=== PATIENT | male | born 1965 | race African-American/Black ===

== ENCOUNTER 2016-09-11 06:43 | Day surgery (SDC) | payer OTHER ==
[~2016-09-11] VITALS: Ht 198.1 cm; Wt 136.1 kg
[~2016-09-11 06:43] MED LIST: AMLODIPINE BESY10 MG PO; APRESOLIN50 MG PO; DIALYVITE TABL1 EACH PO; FISH OIL 1,2001 EAC4 PO; LASIX40 MG PO; NORVASC10 M1 PO; RENVELA800 MG PO; SENSIPAR60 MG PO
[2016-09-11 09:00] LABS: METH RESISTANT S AUREUS PCR NEGATIVE (NEGATIVE)
[2016-09-11 09:32] LABS: PROBE CHECK PASS; SPECIMEN PROCESSING CONTROL PASS
== END 2016-09-11 08:45 | disposition home or self-care (01) ==
LOC: CATH 06:43
PROVIDERS: Surgery
DX: T82.858A Stenosis of other vascular prosthetic devices, implants and grafts, initial encounter (principal); Y83.2 Surgical operation with anastomosis, bypass or graft as the cause of abnormal reaction of the patient, or of later complication, without mention of misadventure at the time of the procedure; Z99.2 Dependence on renal dialysis; I12.0 Hypertensive chronic kidney disease with stage 5 chronic kidney disease or end stage renal disease; N18.6 End stage renal disease
CPT/HCPCS: 87641; C1725; C1769; C1894; J1644

== ENCOUNTER 2016-09-28 13:20 | Inpatient (IN) | payer OTHER, BC ==
[~2016-09-28] VITALS: Ht 198.1 cm; Wt 138.4 kg
[2016-09-28 14:29] LABS: EOSINOPHIL (%) 0.8 % (0-5); EOSINOPHIL COUNT 0.1 K/uL (0-0.3); HEMATOCRIT 35.4 % (38.0-50.0); IMMATURE GRANULOCYTE (%) 0.2 % (0.0-0.7); IMMATURE GRANULOCYTE COUNT 0.1 K/uL; MCH 29.5 PG (29.0-34.0); MCHC 33.1 G/DL (30.0-36.0); MCV 89.2 FL (86-99); MEAN PLAT.VOLUME 8.9 uM^3 (9.0-12.4); MONOCYTE (%) 7.3 % (3-12); MONOCYTE COUNT 0.4 K/uL (0-0.8); NEUTROPHIL (%) 74.3 % (45-76); NEUTROPHIL COUNT 4.5 K/uL (1.8-6.4); PLATELET COUNT 178 K/uL (156-360); RBC DIS.WIDTH-CV 14.9 % (11.8-14.6); RBC DIS.WIDTH-SD 47.7 % (39-53); RED BLOOD COUNT 3.97 M/uL (4.00-5.50)
[2016-09-28 14:44] LABS: CHLORIDE 97 mEq/L (99-109); POTASSIUM 3.1 mEq/L (3.7-5.4); SODIUM 140 mEq/L (136-147)
[2016-09-28 14:46] LABS: GLUCOSE 102 mg/dL (70-99)
[2016-09-28 14:47] LABS: ANION GAP 18 MEQ/L (2-14)
[2016-09-28 14:48] LABS: TOTAL BILIRUBIN 0.7 mg/dL (0.0-1.0)
[2016-09-28 14:50] LABS: ALKALINE PHOSPHATASE 62 IU/L (3-129); GFR ESTIMATE (CALCULATED) 11 mL/min/
[2016-09-28 14:51] LABS: UREA NITROGEN (BUN) 22 mg/dL (9-23)
[2016-09-28 14:59] LABS: TROP-I INTERPRETATION NEGATIVE; TROPONIN-I 0.05 ng/mL (0.0-0.30)
[2016-09-28 21:43] VITALS: BP 108/60
[2016-09-28 21:53] LABS: TROP-I INTERPRETATION NEGATIVE; TROPONIN-I 0.06 ng/mL (0.0-0.30)
[2016-09-28] MEDS ORDERED: SENSIPAR90 MG PO (22:42)
[2016-09-28] MEDS ORDERED: RENVELA800 MG PO (22:44)
[2016-09-28] MEDS ORDERED: AMLODIPINE BES2.5 MG PO (22:48)
[2016-09-28] MEDS ORDERED: LO-DOSE ASPIRIN81 M2 PO (22:49)
[2016-09-28] MEDS ORDERED: VITAMIN D33000 UNIT PO (22:52)
[2016-09-28] MEDS ORDERED: FISH OIL300 MG PO (22:52)
[2016-09-28 23:53] VITALS: BP 103/67
[2016-09-29 03:40] LABS: HEMATOCRIT 35.6 % (38.0-50.0); MCH 29.3 PG (29.0-34.0); MCHC 32.9 G/DL (30.0-36.0); MCV 89.2 FL (86-99); MEAN PLAT.VOLUME 8.9 uM^3 (9.0-12.4); PLATELET COUNT 200 K/uL (156-360); RBC DIS.WIDTH-CV 15.1 % (11.8-14.6); RBC DIS.WIDTH-SD 48.3 % (39-53); RED BLOOD COUNT 3.99 M/uL (4.00-5.50); WHITE BLOOD COUNT 6.2 K/uL (4.1-10.2)
[2016-09-29 03:50] LABS: CHLORIDE 93 mEq/L (99-109); SODIUM 137 mEq/L (136-147)
[2016-09-29 03:51] LABS: GLUCOSE 85 mg/dL (70-99)
[2016-09-29 03:53] LABS: ANION GAP 14 MEQ/L (2-14)
[2016-09-29 04:00] LABS: TROP-I INTERPRETATION NEGATIVE; TROPONIN-I 0.08 ng/mL (0.0-0.30)
[2016-09-29 04:03] LABS: GFR ESTIMATE (CALCULATED) 7 mL/min/; POTASSIUM 5.5 mEq/L (3.7-5.4); UREA NITROGEN (BUN) 39 mg/dL (9-23)
[2016-09-29 04:10] VITALS: BP 107/68
[2016-09-29 09:00] VITALS: BP 121/80
== END 2016-09-29 13:48 | disposition home or self-care (01) | DRG 312 ==
LOC: EME → EDBD 13:20 → EME 13:20 → EDOF 20:42 → 4EAST 21:27
PROVIDERS: Emergency Medicine; Internal Medicine
DX: I95.3 Hypotension of hemodialysis (principal); E86.1 Hypovolemia; R55 Syncope and collapse; I12.0 Hypertensive chronic kidney disease with stage 5 chronic kidney disease or end stage renal disease; N18.6 End stage renal disease; E87.2 Acidosis; Z99.2 Dependence on renal dialysis; Z91.19 Patient's noncompliance with other medical treatment and regimen; F17.210 Nicotine dependence, cigarettes, uncomplicated; E66.9 Obesity, unspecified; Z68.35 Body mass index [BMI] 35.0-35.9, adult
CPT/HCPCS: 71020; 80048; 80053; 83605; 84484; 85025; 85027; 87040; 93005; 99281; 99285; J7030; J7040; P9045

== ENCOUNTER 2018-03-18 09:16 | Day surgery (SDC) | payer OTHER ==
[~2018-03-18] VITALS: Ht 198.1 cm; Wt 140.6 kg
[~2018-03-18 09:16] MED LIST changes: +AMLODIPINE BES2.5 MG PO; +FISH OIL300 MG PO; +LO-DOSE ASPIRIN81 M2 PO; +SENSIPAR90 MG PO; +VITAMIN D33000 UNIT PO
[2018-03-18 10:00] VITALS: BP 104/70
[2018-03-18 10:15] LABS: HEMATOCRIT 39.5 % (38.0-50.0); HEMOGLOBIN 12.8 G/DL (12.5-16.6); MCH 30.1 PG (29.0-34.0); MCHC 32.4 G/DL (30.0-36.0); MCV 92.9 FL (86-99); NRBC (%) 1.8 /100 WBC (0-0); PLATELET COUNT 79 K/uL (156-360); RBC DIS.WIDTH-CV 19.1 % (11.8-14.6); RED BLOOD COUNT 4.25 M/uL (4.00-5.50); WHITE BLOOD COUNT 4.5 K/uL (4.1-10.2)
[2018-03-18 10:39] LABS: CHLORIDE 91 MEQ/L (99-109); CREATININE 8.4 MG/DL (0.6-1.3); GFR ESTIMATE (CALCULATED) 9 mL/min/ (58.99-99999); GLUCOSE 110 mg/dL (70-99); POTASSIUM 4.6 MEQ/L (3.7-5.4); SODIUM 138 MEQ/L (136-147); UREA NITROGEN (BUN) 45 mg/dL (9-23)
[2018-03-18 17:10] VITALS: BP 76/56
[2018-03-18 17:35] VITALS: BP 124/64
== END 2018-03-18 17:40 | disposition home or self-care (01) ==
LOC: SDC 09:16
PROVIDERS: Surgery
PROC: 05WY07Z Revision of Autologous Tissue Substitute in Upper Vein, Open Approach (ICD-10-PCS; principal; 2018-03-18)
DX: T82.590A Other mechanical complication of surgically created arteriovenous fistula, initial encounter (principal); I12.0 Hypertensive chronic kidney disease with stage 5 chronic kidney disease or end stage renal disease; N18.6 End stage renal disease; Z84.1 Family history of disorders of kidney and ureter; Z82.49 Family history of ischemic heart disease and other diseases of the circulatory system
CPT/HCPCS: 80048; 85027; 87641; 93005; J0330; J0690; J1644; J2250; J2405; J2720; J3010; P9045